=== PATIENT | male | born 1960 | race Caucasian/White ===

== ENCOUNTER → 2020-09-13 | Day surgery (SDC) | payer OTHER ==
[~2020-09-13] MED LIST: CYCLOBENZAPRINE10 MG PO; MELOXICAM15 MG PO; MVI PO
[2020-09-13 09:05] LABS: HCT 45.8 % (42.0-52.0); HGB 15.8 g/dl (13.2-18.0); MCHC 34.5 g/dL (32.0-36.0); MCV 89.8 fL (78.0-100.0); MPV 10.3 fL (6.0-9.5); RBC 5.1 M/uL (4.70-6.00); RDW 12.2 % (11.5-14.0); WBC 5.7 K/uL (4.0-10.5)
[2020-09-13 09:28] LABS: ALBUMIN 4.4 g/dL (3.4-5.0); BILIRUBIN - TOTAL 0.8 mg/dL (0.2-1.0); BUN/CREAT RATIO (CALC) 19.2 RATIO; CREATININE 0.78 mg/dL (0.67-1.17); GLOBULIN (CALCULATION) 3.5 g/dL; POTASSIUM 4.3 mmol/L (3.5-5.1); TOTAL PROTEIN 7.9 g/dL (6.4-8.2)
== END | disposition home or self-care (01) ==
LOC: FAS 08:27
PROVIDERS: Surgery
DX: Z12.11 Encounter for screening for malignant neoplasm of colon (principal); M17.12 Unilateral primary osteoarthritis, left knee; G43.909 Migraine, unspecified, not intractable, without status migrainosus; Z79.899 Other long term (current) drug therapy
CPT/HCPCS: 36415; 80053; J2250; J2704; J7120

== ENCOUNTER 2021-09-06 09:37 | Emergency (ER) | payer OTHER ==
[2021-09-06 11:20] LABS: BASOPHIL 0.4 % (0-2); EOSINOPHIL 3.5 % (0-5); HCT 44.7 % (42.0-52.0); HGB 15.1 g/dl (13.2-18.0); LYMPHOCYTE 32.3 % (15-48); MCH 30.3 pg (25.0-31.0); MCHC 33.8 g/dL (32.0-36.0); MCV 89.8 fL (78.0-100.0); MONOCYTE 10.6 % (0-12); MPV 9.9 fL (6.0-9.5); NRBC 0; PLT 270 K/uL (150-400); RBC 4.98 M/uL (4.70-6.00); RDW 12.3 % (11.5-14.0); WBC 5.1 K/uL (4.0-10.5)
[2021-09-06 11:42] LABS: ALBUMIN 3.6 g/dL (3.4-5.0); BILIRUBIN - TOTAL 0.4 mg/dL (0.2-1.0); BUN/CREAT RATIO (CALC) 13.3 RATIO; C-REACTIVE PROTEIN 0.8 mg/dL (<=0.90); CREATININE 0.75 mg/dL (0.67-1.17); GLOBULIN (CALCULATION) 3.3 g/dL; POTASSIUM 4.1 mmol/L (3.5-5.1); TOTAL PROTEIN 6.9 g/dL (6.4-8.2)
[2021-09-06] MEDS ORDERED: MEDROL 4MG DOSEP4 MG PO (14:13)
[2021-09-06] MEDS ORDERED: VENTOLIN HFA18 GM INH (14:13)
== END 2021-09-06 14:35 | disposition home or self-care (01) ==
LOC: FER 09:37
PROVIDERS: Emergency Medicine
DX: J45.909 Unspecified asthma, uncomplicated (principal); U07.1 COVID-19
CPT/HCPCS: 36415; 71250; 80053; 82728; 83615; 83735; 83880; 84145; 84443; 84484; 85025; 85379; 86140; 93005; J7030